=== PATIENT | male | born 1980 | race Caucasian/White ===

== ENCOUNTER 2023-01-26 09:42 | Outpatient (CLI) | payer BC, SELFPAY ==
--- NOTE | ~2023-01-26 | MR_ITS ---
EXAMINATION: MR shoulder LT w con DATE: 01/26/2023 11:26 INDICATION: Chronic left shoulder pain TECHNIQUE: Magnetic resonance imaging (MRI) of the left shoulder was performed following intra-artic ular gadolinium contrast injection and without intravenous contrast. Details of the glenohumeral join t injection have been dictated separately. Sequences included axial T2-weighted FS FSE, axial T1-maribeth ghted FS FSE, coronal oblique T1-weighted FS FSE, coronal oblique T2-weighted FSE, sagittal T2-weight ed FS FSE, sagittal T1-weighted FSE, and ABER (abduction external rotation) T1-weighted FS FSE. COMPARISON: None. FINDINGS: Coracoacromial arch: The acromion undersurface is curved in morphology (type II). The coracoacromial ligament is normal. M oderate acromioclavicular osteoarthritis. Rotator cuff: Mild supraspinatus tendinopathy with contrast filling an intrasubstance tear defect in the distal sup raspinatus tendon and conjoined portion of the supraspinatus and infraspinatus tendons on the ABER im aging. The contrast-filled defect measures approximately 1.8 cm AP and approximately 1.4 cm medial co llateral on the ABER imaging. The articular side of the tendon appears grossly intact although the pr esence of intrasubstance contrast confirms at least small perforation of the bursal articular surface . No contrast enhancement within the subacromial/subdeltoid bursa to suggest involvement of the bursa l side of the tendon. The tear appears to involve less than one half of the tendon thickness although there is a greater degree of contrast imbibition which appear to exaggerate the severity of the tear on the oblique coronal imaging. The laxity to the distal tendon on the ABER imaging also results in blisterlike separation of the articular side of the tendon from the deeper fibers of the tendon also exaggerated in the thickness of the tear. The teres minor and subscapularis tendons are normal. Intra substance contrast and a few gas bubbles within the tissues of the biceps gomez sling at the rotator cuff interval at the site of injection. Normal rotator cuff muscle bulk and signal. Biceps tendon, glenoid labrum and glenohumeral cartilage: Long head of the biceps tendon is normal. Normal small anterosuperior sublingual foramen. Labrum is o therwise normal. Glenohumeral cartilage is normal. Bones and other: Bone alignment is normal. No fracture. 8 mm T2 hyperintense lesion with lobular margins and cluster o f grape like appearance along the metaphyseal side of the physis scar of the proximal humerus with lo cation and appearance most consistent with an enchondroma. No other pathologic marrow replacing proce ss. Minimal fluid in the subacromial/subdeltoid bursa consistent with minimal bursitis. IMPRESSION: 1. Essentially indiscernible small articular sided tear of the supraspinatus tendon with contrast adelita ling a 1.8 x 1.4 cm intrasubstance tear defect within the distal supraspinatus and conjoined portion of the supraspinatus and infraspinatus tendons. 2. Moderate acromioclavicular osteoarthritis. Reviewed, dictated and finalized at location A. IMPRESSION: 1. Essentially indiscernible small articular sided tear of the supraspinatus te ndon with contrast filling a 1.8 x 1.4 cm intrasubstance tear defect within the distal supraspinatus and conjoined portion of the supraspinatus and infraspina tus tendons. 2. Moderate acromioclavicular osteoarthritis.
--- NOTE | ~2023-01-26 | XR_ITS ---
EXAMINATION: XR fl inj shoulder LT - MR/CT DATE: 01/26/2023 10:37 INDICATION: Chronic left shoulder pain. No prior surgery or dislocation. TECHNIQUE: A time-out was performed to verify the patient's name, date of , and procedure to b e performed. The procedure including the risks, benefits, and alternatives was discussed with the pat ient. Risks discussed included bleeding and infection. The patient understood the risks and agreed to proceed. The skin overlying the left glenohumeral joint was prepped and draped in usual sterile fash ion. Anesthetic was administered with 1% lidocaine subcutaneously. A 22 G needle was advanced under fluoroscopic guidance into the joint. Subsequently, injectate consisting of 12 mL of 1:200 Multihan ce, 1:4 1% lidocaine, and 1:4 Omnipaque 240 was instilled. The needle was removed and the entry site was cleaned and dressed. There were no immediate complications. Fluoroscopy exposure time was 0.1 m inutes. The total number of images was 2. FINDINGS: Real-time fluoroscopy demonstrates the needle and contrast in the left glenohumeral joint. IMPRESSION: 1. Successful left glenohumeral joint injection of contrast for subsequent MR arthrography. Reviewed, dictated and finalized at location A. IMPRESSION: 1. Successful left glenohumeral joint injection of contrast for subsequent MR a rthrography.
== END 2023-01-26 09:43 | disposition home or self-care (01) ==
PROVIDERS: PCP Emergency Medicine; Visit Provider Orthopaedic Surgery
DX: M75.102 Unspecified rotator cuff tear or rupture of left shoulder, not specified as traumatic (principal); M19.012 Primary osteoarthritis, left shoulder
CPT/HCPCS: 23350; 73222; A9577; Q9966

== ENCOUNTER 2023-03-25 06:52 | Emergency (ER) | payer BC, SELFPAY ==
--- NOTE | ~2023-03-25 | CT_ITS ---
Non-contrast CT scan of the Abdomen and Pelvis Clinical indication: Left flank pain Technique: 2.5 mm axial scans were obtained through the abdomen and pelvis without intravenous or or al contrast. Dose reduction technique was used on this scan by utilizing automated exposure control a nd iterative reconstruction technique. The dose-length product (DLP) was 1659.64 mGy-cm. Findings: Images through the lung bases reveal no abnormalities. There is a punctate stone, either at the left UVJ are probably just within the urinary bladder. There is minimal fullness of the left renal collecting system and left ureter. No right-sided stones ident ified. No right hydronephrosis. The liver, spleen, pancreas, and adrenals appear normal. Cholecystectomy clips are present. There is no aortic aneurysm. There is no evidence of bowel obstruction. Normal appendix. Images through the pelvis were performed. There is no evidence of ascites or lymphadenopathy. Prostat e gland and seminal vesicles are unremarkable. Impression: 2 mm stone, probably just within the urinary bladder, or else at the left UVJ, with minimal fullness of the left renal collecting system and left ureter. Reviewed, dictated and finalized at [facility]. Impression: 2 mm stone, probably just within the urinary bladder, or else at the left UVJ, with minimal fullness of the left renal collecting system and left ureter.
[2023-03-25 06:57] VITALS: BP 126/82; PULSE 62; RESP 20; TEMP 36.4; O2SAT 100
[2023-03-25 07:14] LABS: Basophils Absolute Auto 0.1 K/mm3 (0.0-0.1); Eosinophils Absolute Auto 0.2 K/mm3 (0-0.3); Eosinophils Percent Auto 3.1 % (0-4.4); Hematocrit 43.5 % (42.0-52.0); Hemoglobin 14.6 g/dL (14.0-18.0); Immature Granulocyte Absolute 0.03 K/mm3 (0.00-0.031); Immature Granulocyte Percent A 0.5 % (0-0.5); Lymphocytes Absolute Auto 2.45 K/mm3 (0.9-3.2); Lymphocytes Percent Auto 42.2 % (18.3-44.2); Mean Corpuscular HGB Conc 33.6 g/dl (32-36); Mean Corpuscular Hemoglobin 30.6 pg (26-34); Mean Corpuscular Volume 91.2 fl (80-100); Mean Platelet Volume 8.3 fl (7.4-10.4); Monocytes Absolute Auto 0.5 K/mm3 (0.1-0.6); Monocytes Percent Auto 9.3 % (2.6-8.5); Neutrophils Absolute Auto 2.6 K/mm3 (1.3-6.7); Neutrophils Percent Auto 43.9 % (45.5-73.1); Platelet Count Result 270 k/mm3 (150-375); Red Blood Count 4.77 M/mm3 (4.6-6.20); Red Cell Distribution Width 12.5 % (11.5-14.5); White Blood Count 5.8 K/mm3 (4.5-10.0)
[2023-03-25 07:19] LABS: Appearance Urine Clear (Clear); Bacteria Urine None Seen /hpf; Bilirubin Urine Negative (Negative); Blood Urine 3+ (Negative); Color Urine Yellow (Yellow); Glucose Urine UA Negative (Negative); Ketones Urine Negative (Negative); Leukocyte Esterase Ur Negative LEU/UL (Negative); Nitrate Urine Negative (Negative); Non Pathogenic Casts 0-2; Protein Urine Negative (Negative); RBC Urine >100 /hpf (0-2); Specific Grav Ur 1.019 (1.001-1.035); Squamous Epithelial Cell Urine None seen /hpf (Few); Urobilinogen Urine 0.2 mg/dL (<2.0); WBC Urine 0-5 /hpf; pH Urine 5.5 (5.0-9.0)
[2023-03-25 07:20] LABS: Add Urine Microscopic? YES
[2023-03-25 07:24] LABS: Alanine Aminotransferase 28 U/L (6-50); Albumin Level 4.3 g/dL (3.5-5.1); Alkaline Phosphatase 75 U/L (38-126); Anion Gap 11 mmol/L (8-16); Aspartate Amino Transferase 26 U/L (17-59); Bilirubin,Total 0.4 mg/dL (0.2-1.3); Blood Urea Nitrogen 9 mg/dL (9-20); Calcium 8.4 mg/dL (8.4-10.2); Carbon Dioxide 22 mmol/L (22-30); Chloride 109 mmol/L (98-107); Estimated CRCL calculation 129 ml/min; Estimated Glomerular Filt Rate > 60; Glucose 132 mg/dL (65-110); Lipase 41 U/L (23-300); Potassium 3.8 mmol/L (3.4-5.0); Sodium 142 mmol/L (137-145)
[2023-03-25] MEDS: SODIUM CHLORIDE 0.9% IV 1,000 ML 999 ML IV CONT (07:35)
[2023-03-25] MEDS: MORPHINE SULFATE (*CRX) 4 MG/ML INJ IV PUSH (07:36)
[2023-03-25] MEDS: ONDANSETRON INJ 4 MG/2 ML VIAL IV PUSH (07:37)
[2023-03-25] MEDS: KETOROLAC 30 MG/ML VIAL (*BKC) IV PUSH (08:11)
--- NOTE | 2023-03-25 09:29 | ED.ABDPAIN ---
HPI - Abdominal Pain General Chief Complaint: Abdominal Pain Stated Complaint: left side pain Time Seen by Provider: 03/25/23 07:12 History of Present Illness HPI narrative: Patient is a 43-year-old male who presents ER with left-sided abdominal pain. Sudden onset earlier this morning. Associate with nausea and vomiting as well as diaphoresis. No alleviating factors. He cannot find a comfortable position to his walk around the room. Has history of kidney stone when he was 19. No aggravating factors Related Data Allergies Allergy/AdvReac Type Severity Reaction Status Date / Time shellfish derived Allergy Hives Verified 03/25/23 06:53 Review of Systems Review of Systems: All systems reviewed & are unremarkable except as noted in HPI and below Constitutional: Comments: + Diaphoresis Cardiovascular: Cardiovascular: Denies chest pain and Denies rapid heart rate Gastrointestinal: Gastrointestinal: Reports abdominal pain, Denies diarrhea, Reports nausea and Reports vomiting Genitourinary: Genitourinary: Denies dysuria, Denies testicular pain and Reports urinary frequency [facility] Past Medical History Medical History (Updated 03/25/23 @ 09:32 by Nguyễn Azul MD) Healthy adult male Surgical History Surgical History (Updated 03/25/23 @ 09:32 by Nguyễn Azul MD) History of rotator cuff surgery Exam Narrative: GENERAL: Uncomfortable appearing, obese, pacing the room. HEAD: Normocephalic, atraumatic. ENT: Mucous membranes moist. NECK: Supple. CHEST: Clear to auscultation. No respiratory distress. HEART: Regular rate and rhythm. Normal peripheral pulses. ABDOMEN: Soft, mild tenderness left lower quadrant without guarding, nondistended. EXTREMITIES: Normal range of motion. No edema. NEURO: Alert and oriented x3. PSYCH: Normal mood and affect. Course Course Emergency Course: Patient resting comfortably after receiving morphine and Toradol. Educated on small kidney stone entering his bladder. Patient appropriate for discharge home. No signs of infection in the urine. Vital Signs Vital signs: Vital Signs Temperature 97.5 F L 03/25/23 06:57 Pulse Rate 62 03/25/23 06:57 Respiratory Rate 20 03/25/23 06:57 Blood Pressure 126/82 03/25/23 06:57 Pulse Oximetry 100 03/25/23 06:57 Oxygen Delivery Room Air 03/25/23 06:57 Temperature 97.5 F L 03/25/23 06:57 Pulse Rate 62 03/25/23 06:57 Respiratory Rate 20 03/25/23 06:57 Blood Pressure 126/82 03/25/23 06:57 Pulse Oximetry 100 03/25/23 06:57 Oxygen Delivery Room Air 03/25/23 06:57 MDM - Abdominal Pain Lab Data 03/25/23 07:04 03/25/23 07:04 Labs: Lab Results 03/25/23 Range/Units 07:04 WBC 5.8 (4.5-10.0) K/mm3 RBC 4.77 (4.6-6.20) M/mm3 Hgb 14.6 (14.0-18.0) g/dL Hct 43.5 (42.0-52.0) % MCV 91.2 (80-100) fl MCH 30.6 (26-34) pg MCHC 33.6 (32-36) g/dl RDW 12.5 (11.5-14.5) % Plt Count 270 (150-375) k/mm3 MPV 8.3 (7.4-10.4) fl Immature Gran % (Auto) 0.5 (0-0.5) % Neut % (Auto) 43.9 L (45.5-73.1) % Lymph % (Auto) 42.2 (18.3-44.2) % [place] % (Auto) 9.3 H (2.6-8.5) % Eos % (Auto) 3.1 (0-4.4) % Baso % (Auto) 1.0 (0.2-1.2) % Lymph # (Auto) 2.45 (0.9-3.2) K/mm3 [place] # (Auto) 0.5 (0.1-0.6) K/mm3 Eos # (Auto) 0.2 (0-0.3) K/mm3 Baso # (Auto) 0.1 (0.0-0.1) K/mm3 Abs Immat Gran (auto) 0.03 (0.00-0.031) K/mm3 Absolute Neuts (auto) 2.6 (1.3-6.7) K/mm3 Absolute Nucleated RBC 0.0 (0.0-0.012) K/mm3 Nucleated RBC % 0.0 (0.0-0.2) % Sodium 142 (137-145) mmol/L Potassium 3.8 (3.4-5.0) mmol/L Chloride 109 H (98-107) mmol/L Carbon Dioxide 22 (22-30) mmol/L Anion Gap 11 (8-16) mmol/L BUN 9 (9-20) mg/dL Creatinine 0.80 (0.7-1.3) mg/dL Estim Creat Clear Calc 129 ml/min Estimated GFR > 60 (59 - ) Glucose 132 H (65-110) mg/dL Calcium 8.4 (8.4-10.2) mg/dL Total Bilirubin 0.4 (0.2-1
[2023-03-25 09:47] VITALS: BP 127/84; PULSE 69; RESP 20; O2SAT 100
== END 2023-03-25 09:56 | disposition home or self-care (01) ==
PROVIDERS: Emergency Medicine; Emergency Provider Emergency Medicine; PCP Emergency Medicine
DX: N20.1 Calculus of ureter (principal)
CPT/HCPCS: 36415; 74176; 80053; 81001; 83690; 85025; 96361; 96374; 96375; 99284; J1885; J2270; J2405; J7030

== ENCOUNTER 2024-01-19 08:28 | Outpatient (CLI) | payer OTHER, BC, SELFPAY ==
[2024-01-26 17:32] VITALS: BMI 35.7
--- NOTE | 2024-01-26 17:32 | WPDHOMESLEEP ---
Sleep Study - Home Unattended Date of Study: 01/19/24 Ordering Provider: Negro Sánchez, Interpreting Provider: Deepika Velazquez, DO Home Sleep Study Type: Watch PAT Height: 1.73 m Weight: 106.594 kg Body Mass Index: 35.7 Neck Circumference (inches): 16.75 [place]: 13 Reason for Sleep Study Snoring, daytime hypersomnia Sleep History The patient is a 43-year-old male with anxiety, depressioin, GERD and arthritis that had a sleep study ordered by his primary care for evaluation of sleep apnea. The patient rarely awakens from sleep short of breath. He occasionally awakens at night with heartburn, belching or cough. He frequently snores and it is occasionally loud enough that others complain. He frequently has trouble sleeping when he has a cold. He rarely wakes up gasping for air throughout the night. He rarely has breathing problems at night observed by himself or others. He constantly sweats excessively at night. He denies having heart palpitations or irregular heartbeats during the night. He rarely falls asleep during the day but never while driving. He denies sleep paralysis and cataplexy. He occasionally has trouble at school or work due to sleepiness. He occasionally experiences vivid dreamlike scenes upon awakening or falling asleep. He denies feeling afraid of going to sleep. He occasionally has nightmares. He occasionally remembers his dreams. He frequently has thoughts racing through his mind. He rarely feels sad or depressed. He occasionally has anxiety. He rarely has muscular tension. He rarely notices parts of his body jerk. He occasionally kicks during the night. He denies having crawling and aching feelings in his legs and denies having leg pain during the night. He rarely grinds his teeth during sleep but occasionally awakens with morning jaw pain. He is occasionally bothered by pain during the day and occasionally awakened by pain during the night. He occasionally wakes up feeling stiff in the morning. He occasionally wakes up with sore or achy muscles. He rarely wakes up with pain in the neck, spine and other joints. He goes to bed at 9:30 p.m. on weekdays and at 11:00 p.m. on the weekends. It takes him 5-15 minutes to fall asleep. He wakes up 3-4 times during the night to adjust his position or due to racing thoughts. He wakes up at 6:00 a.m. on weekdays and 8:00 a.m. on the weekends. He typically gets 6-7 hours of sleep per night. He will stay in bed for 15 minutes on weekdays after waking up and 1 hour on the weekends. He currently lives with his and children. He denies consuming any caffeinated beverages within 2 hours of bedtime. He denies engaging in physical exercise before bedtime. He will watch television before falling asleep. He will take naps in the afternoon or the evening but they are not refreshing. He consumes 2-3 caffeinated beverages per day. He does consume alcohol. He denies tobacco and recreational drug PMFSH Past Medical History Medical History GERD (gastroesophageal reflux disease) Healthy adult male Surgical History Surgical History History of rotator cuff surgery Social History Social History Smoking status: Never smoker Medications Home Medications Medication Instructions Recorded Confirmed Type bupropion HCl 150 mg 24 hr tablet, 150 mg PO QAM 11/24/23 11/24/23 History extended release cholestyramine (with sugar) 4 gram 4 g PO BID #348.6 grams 11/24/23 11/24/23 Rx oral powder (Questran) meloxicam 7.5 mg/5 mL oral 7.5 mg PO DAILY 11/24/23 11/24/23 History suspension omeprazole 40 mg capsule,delayed 40 mg PO DAILY 11/24/23 11/24/23 History release sertraline 50 mg tablet 50 mg PO DAILY 11/24/23 11/24/23 History Sleep Procedure The sleep stud
== END 2024-01-20 07:30 | disposition home or self-care (01) ==
LOC: ANHCSM 08:30
PROVIDERS: PCP Emergency Medicine; Visit Provider Emergency Medicine
DX: G47.19 Other hypersomnia (principal); G47.33 Obstructive sleep apnea (adult) (pediatric)
CPT/HCPCS: 95800